=== PATIENT | male | born 1970 | race Caucasian/White ===

== ENCOUNTER → 2017-07-22 | Outpatient (CLI) | payer OTHER ==
--- NOTE | 2017-07-22 19:34 | Diagnostic Imaging Report ---
INDICATION: Back pain. FINDINGS: The alignment of the thoracic spine is grossly normal. Vertebral body heights are well maintained. No fracture or traumatic subluxation. IMPRESSION: Unremarkable thoracic spine series. Dictated by: Dictated on workstation # [id number]
== END ==
LOC: RAD 17:09
PROVIDERS: ATTEND Nurse Practitioner Family
DX: S20.229A Contusion of unspecified back wall of thorax, initial encounter (principal); Y00.XXXA Assault by blunt object, initial encounter
CPT/HCPCS: 72072